=== PATIENT | male | born 1965 | race Caucasian/White ===

== ENCOUNTER 2017-07-28 22:40 | Observation (INO) | payer OTHER ==
[2017-07-28] MEDS ORDERED: IPRATROPIUM/ALBUTEROL 3 ML DEYVIAL ONE (22:59)
[2017-07-28] MEDS ORDERED: IPRATROPIUM/ALBUTEROL 3 ML DEYVIAL IH ONE (23:08)
[2017-07-28] MEDS ORDERED: NS 1,000 ML IV ONE ×2 (23:10→23:22)
[2017-07-28] MEDS ORDERED: NS 1,000 ML IV SCH (23:15)
[2017-07-28] MEDS ORDERED: methylPREDNISolone SOD SUCC 125 MG/2 ML VIAL IVP ONE (23:19)
[2017-07-28] MEDS ORDERED: HYDROCODONE/APAP 5/325 TAB PO ONE (23:21)
[2017-07-28] MEDS ORDERED: BENZONATATE 100 MG CAP PO ONE (23:21)
[2017-07-28 23:27] LABS: PLATELET COUNT 121 10^3/uL (150-400)
--- NOTE | 2017-07-28 23:50 | EDPHY ---
H & P Stated Complaint: resp diff. Source: Patient, Family (Mother) Exam Limitations: No limitations - Personal History Current Tetanus/Diphtheria Vaccine: Unsure Current Tetanus Diphtheria and Acellular Pertussis (TDAP): Unsure - Medical/Surgical History Hx Asthma: No Hx Chronic Respiratory Disease: Yes Hx Diabetes: No Hx Cardiac Disease: No Hx Renal Disease: No Hx Cirrhosis: No Hx Alcoholism: No Hx HIV/AIDS: No Hx Splenectomy or Spleen Trauma: No Other PMH: COPD, Bipolar - Social History Smoking Status: Heavy smoker HPI/ROS: HPI: This is a 51-year-old male who presents with Chief Complaint: Respiratory infection Location: Chest Quality: Respiratory infection Duration: 5 days Signs and Symptoms: + shortness of breath at rest, + shortness of breath on exertion, + productive cough, no chest pain, no palpitations, no lower extremity edema, + wheezing, no orthopnea, no paroxysmal nocturnal dyspnea, no fever, no injury/trauma, no hemoptysis, no body aches, no neck stiffness, + fatigue Timing: Worsening Severity: Moderate Context: Patient is a heavy tobacco user presents with 5 day history of worsening productive coughing episodes, dyspnea and generalized fatigue. Denies any chest pain/palpitations/lower extremity edema. Has an Albuterol inhaler at home but does not use consistently as he reports that "it does not work." Does not see a physician regularly. Did not receive influenza vaccination this year. Reports generalized malaise and decreased appetite. Mother reports he only drinks coffee daily. Patient's biggest complaint is the inability to cough up mucus. No official diagnosis of COPD. No prior hospitalizations for COPD exacerbation and no previous intubations secondary to respiratory distress. Modifying Factors: None Comment: ROS: see HPI Constitutional: No fever, + chills, no weight loss Eyes: No blurred vision Respiratory: + shortness of breath,+ cough Cardiovascular: No chest pain, no palpitations, no lower extremity edema Gastrointestinal: No nausea, no vomiting, no diarrhea Genitourinary: No dysuria Extremities: No myalgias Neurologic: No weakness, no numbness Skin: No rashes Hematologic: No bruising, no bleeding MEDICAL/SURGICAL/SOCIAL HISTORY: Medical history: Tobacco user. Does not take any regular medications. Surgical history: Denies Social history: Mother at bedside. CONSTITUTIONAL: Adult white male who appears older than stated age, smells heavily of tobacco, awake and alert, no obvious distress HEENT: Atraumatic and normocephalic, PERRL, EOMI. Tympanic membranes clear. Oropharynx clear, no exudate and moist pink mucosa. Airway patent. No lymphadenopathy. No meningismus. Cardiovascular: Normal S1/S2, tachycardia, regular rhythm, without murmur rub or gallop. PULMONARY/CHEST: Symmetrical and nontender. Tachypnea; faint expiratory wheezing heard throughout. Purse lipped breathing; prolonged expiratory phase. fair air movement. No accessory muscle usage. ABDOMEN: Soft, nondistended, nontender, no rebound, no guarding, no peritoneal signs, no masses or organomegaly. No CVAT. EXTREMITIES: 2/2 pulses, strength 5/5, no deformities, no clubbing, no cyanosis or edema. No calf tenderness. NEUROLOGICAL: no focal neuro deficits. GCS 15. SKIN: Warm and dry, no erythema. no rash. Good capillary refill. (Anastasia Williamson) Constitutional: Initial Vital Signs Temperature (C) 37.6 C 07/28/17 22:43 Heart Rate 142 H 07/28/17 22:43 Respiratory Rate 20 07/28/17 22:43 Blood Pressure 120/82 H 07/28/17 22:43 O2 Sat (%) 89 L 07/28/17 22:43 O2 Delivery Mode Nasal Cannula O2 (L/minute) 3 Allergies/Adverse Reactions: haloperidol [From Haldol] Allergy (Verified 07/28/17 22:45) Medical Decision Making - Diagnostics Imaging Results: Imaging Impressions Chest X-Ray 07/28/17 23:14 Impression: Mild airways disease. No pneumonia or effusion.. ED Course/Re-evaluation: Labs, IV fluids, nebulizer therapy, IV medications, influenza, chest x-ray ordered Vital signs reviewed upon arrival: O2 sats 88% on room air with a heart rate of 140 Placed on 3 L nasal cannula. Will evaluate for influenza versus COPD exacerbation versus pneumonia Patient given 3 L normal saline, IV Solu-Medrol, DuoNeb, Tessalon Perles and p.o. [place] with minimal relief Reassessed patient 1 hr later and heart rate now 115-120. Chest x-ray my read shows no signs of opacity, effusion, pneumothorax, widened mediastinum. Influenza B positive: Tamiflu candidate. Patient removed from 3 L nasal cannula; dropped down to 85% on room air at rest. Patient has [facility] but prefers to stay at our facility. Called [facility] and they notify me that patient has the type of insurance were he can choose to go to any facility and he may remain at [facility]. 0015: ED to consult for admission: Spoke with Dr. Ospina who kindly agrees to admit patient and provide further care. This patient was seen under the supervision of my secondary supervising physician. I evaluated care for this patient independently. (Anastasia Williamson) PHYSICIAN DOCUMENTATION: The patient was evaluated and managed by the Physician Data Entry Processor. My co- signature indicates that I have reviewed this chart and I agree with the findings and plan of care as documented. I am the secondary supervising physician. (Kita Whalen) Differential Diagnosis: Shortness of breath including but not limited to pulmonary infectious process, COPD, asthma, pulmonary embolus and congestive heart failure. (Anastasia Williamson) - Data Points Laboratory Results: Laboratory Results 07/28/17 23:15 07/28/17 23:15 07/28/17 07/28/17 07/28/17 23:16 23:15 23:15 WBC RBC Hgb Hct MCV MCH MCHC RDW Plt Count MPV Neut % (Auto) Lymph % (Auto) [place] % (Auto) Eos % (Auto) Baso % (Auto) Nucleat RBC Rel Count Absolute Neuts (auto) Absolute Lymphs (auto) Absolute Monos (auto) Absolute Eos (auto) Absolute Basos (auto) Absolute Nucleated RBC Immature Gran % Immature Gran # VBG Lactic Acid 0.7 mmol/L mmol/L (0.7-2.1) Sodium 133 mEq/L L mEq/L (135-145) Potassium 4.5 mEq/L mEq/L (3.5-5.2) Chloride 96 mEq/L L mEq/L (97-110) Carbon Dioxide 25 mEq/l mEq/l (22-31) Anion Gap 12 mEq/L mEq/L (8-16) BUN 21 mg/dL mg/dL (7-23) Creatinine 1.3 mg/dL mg/dL (0.7-1.3) Estimated GFR 58 Glucose 118 mg/dL H mg/dL (70-100) Calcium 8.6 mg/dL mg/dL (8.5-10.4) Troponin I < 0.012 ng/mL ng/mL (0.000-0.034) NT-Pro-B Natriuret Pep 42 pg/mL pg/mL (0-125) Nasal Influenza A PCR NEGATIVE FOR FLU A (NEGATIVE) Nasal Influenza B PCR FLU B DETECTED H (NEGATIVE) 07/28/17 23:15 WBC 3.92 10^3/uL 10^3/uL (3.80-9.50) RBC 4.66 10^6/uL 10^6/uL (4.40-6.38) Hgb 15.2 g/dL g/dL (13.7-17.5) Hct 42.0 % % (40.0-51.0) MCV 90.1 fL fL (81.5-99.8) MCH 32.6 pg pg (27.9-34.1) MCHC 36.2 g/dL g/dL (32.4-36.7) RDW 12.6 % % (11.5-15.2) Plt Count 121 10^3/uL L 10^3/uL (150-400) MPV 10.4 fL fL (8.7-11.7) Neut % (Auto) 71.2 % % (39.3-74.2) Lymph % (Auto) 16.1 % % (15.0-45.0) [place] % (Auto) 11.7 % % (4.5-13.0) Eos % (Auto) 0.0 % L % (0.6-7.6) Baso % (Auto) 0.5 % % (0.3-1.7) Nucleat RBC Rel Count 0.0 % % (0.0-0.2) Absolute Neuts (auto) 2.79 10^3/uL 10^3/uL (1.70-6.50) Absolute Lymphs (auto) 0.63 10^3/uL L 10^3/uL (1.00-3.00) Absolute Monos (auto) 0.46 10^3/uL 10^3/uL (0.30-0.80) Absolute Eos (auto) 0.00 10^3/uL L 10^3/uL (0.03-0.40) Absolute Basos (auto) 0.02 10^3/uL 10^3/uL (0.02-0.10) Absolute Nucleated RBC 0.00 10^3/uL 10^3/uL (0-0.01) Immature Gran % 0.5 % % (0.0-1.1) Immature Gran # 0.02 10^3/uL 10^3/uL (0.00-0.10) VBG Lactic Acid Sodium Potassium Chloride Carbon Dioxide Anion Gap BUN Creatinine Estimated GFR Glucose Calcium Troponin I NT-Pro-B Natriuret Pep Nasal Influenza A PCR Nasal Influenza B PCR Medications Given: Albuterol/Ipratropium (Duoneb) 3 ml IH QID LORI Stop: 01/25/18 05:59 Last Admin: 07/29/17 06:04 Dose: 3 ml Discontinued Medications Hydrocodone Bitart/Acetaminophen ([place] 5/325) 2 tab PO EDNOW ONE Stop: 07/28/17 23:22 Last Admin: 07/28/17 23:32 Dose: 2 tab Albuterol/Ipratropium (Duoneb) 3 ml IH EDNOW ONE Stop: 07/28/17 23:09 Last Admin: 07/28/17 23:10 Dose: 3 ml Azithromycin (Zithromax) 500 mg PO ONCE ONE PRN Reason: Protocol Stop: 07/29/17 01:31 Last Admin: 07/29/17 02:15 Dose: 500 mg Benzonatate (Tessalon Pearles) 200 mg PO EDNOW ONE Stop: 07/28/17 23:22 Last Admin: 07/28/17 23:32 Dose: 200 mg Sodium Chloride (Ns) 1,000 mls @ 0 mls/hr IV ONCE ONE PRN Reason: Wide Open Stop: 07/28/17 23:11 Last Admin: 07/28/17 23:11 Dose: 1,000 mls Sodium Chloride (Ns) 1,000 mls @ 0 mls/hr IV EDNOW ONE; Wide Open PRN Reason: Protocol Stop: 07/28/17 23:23 Last Admin: 07/28/17 23:31 Dose: 1,000 mls Sodium Chloride (Ns) 1,000 mls @ 0 mls/hr IV EDNOW ONE; Wide Open PRN Reason: Protocol Stop: 07/29/17 00:09 Last Admin: 07/29/17 00:30 Dose: 1,000 mls Methylprednisolone Sodium Succinate (Solu-Medrol) 125 mg IVP EDNOW ONE Stop: 07/28/17 23:20 Last Admin: 07/28/17 23:20 Dose: 125 mg Oseltamivir Phosphate (Tamiflu) 75 mg PO EDNOW ONE Stop: 07/29/17 00:07 Last Admin: 07/29/17 00:30 Dose: 75 mg Departure - Departure Disposition: [facility] Clinical Impression: Influenza B, COPD with exacerbation, Hypoxia Condition: Fair
[2017-07-29] MEDS ORDERED: OSELTAMIVIR PHOSPHATE 75 MG CAP PO ONE (00:06)
[2017-07-29] MEDS ORDERED: NS 1,000 ML IV ONE (00:08)
[2017-07-29] MEDS ORDERED: ALBUTEROL 3 ML DEYVIAL IH PRN (01:28)
[2017-07-29] MEDS ORDERED: ONDANSETRON 4 MG/2 ML VIAL IVP PRN (01:28)
[2017-07-29] MEDS ORDERED: ACETAMINOPHEN 325 MG TAB PO PRN (01:28)
[2017-07-29] MEDS ORDERED: ONDANSETRON DISINTEGRATING 4 MG TAB PO PRN (01:28)
[2017-07-29] MEDS ORDERED: AZITHROMYCIN 250 MG TAB PO ONE (01:30)
--- NOTE | 2017-07-29 02:16 | PDGENHP ---
History and Physical - Chief Complaint Shortness of breath - History of Present Illness 51 yo M w/ COPD and schizophrenia presents w/ shortness of breath. Patient has had URI symptoms (cough, congestion, SOB) for 4 days. These symptoms progressed until today when his shortness of breath and wheezing became worse. In the ED he was noted to flu positive with an audible wheeze. Additionally, he was hypoxic to mid 80's upon ambulation so he was admitted for further treatment. History Information - Allergies/Home Medication List Allergies/Adverse Reactions: haloperidol [From Haldol] Allergy (Verified 07/28/17 22:45) I have personally reviewed and updated: family history, medical history - Past Medical History COPD Additional medical history: Schizophrenia - Surgical History Additional surgical history: Diverticulitis a few years ago w/ drain placement - Family History Additional family history: Asked, denies - Social History Smoking Status: Heavy smoker Review of Systems Review of Systems: ROS: 10pt was reviewed & negative except for what was stated in HPI & below Physical Exam Physical Exam: Temp Pulse Resp BP Pulse Ox 36.8 C 104 H 20 122/78 H 89 L 07/29/17 01:51 07/29/17 01:51 07/29/17 01:51 07/29/17 01:51 07/29/17 01:51 O2 (L/minute) 2 Constitutional: no apparent distress, not in pain Eyes: PERRL, EOMI Ears, Nose, Mouth, Throat: moist mucous membranes, no oral mucosal ulcers Cardiovascular: regular rate and rhythym, no murmur, rub, or gallop Respiratory: no respiratory distress, reduced air movement, No expiratory wheeze Gastrointestinal: normoactive bowel sounds, soft, non-tender abdomen Skin: warm, normal color Musculoskeletal: full muscle strength, no muscle tenderness Neurologic: AAOx3, CN II-XII Intact Psychiatric: interacting appropriately, not anxious Lab Data & Imaging Review 07/28/17 23:15 07/28/17 23:15 WBC 3.92 10^3/uL (3.80-9.50) 07/28/17 23:15 RBC 4.66 10^6/uL (4.40-6.38) 07/28/17 23:15 Hgb 15.2 g/dL (13.7-17.5) 07/28/17 23:15 Hct 42.0 % (40.0-51.0) 07/28/17 23:15 MCV 90.1 fL (81.5-99.8) 07/28/17 23:15 MCH 32.6 pg (27.9-34.1) 07/28/17 23:15 MCHC 36.2 g/dL (32.4-36.7) 07/28/17 23:15 RDW 12.6 % (11.5-15.2) 07/28/17 23:15 Plt Count 121 10^3/uL (150-400) L 07/28/17 23:15 MPV 10.4 fL (8.7-11.7) 07/28/17 23:15 Neut % (Auto) 71.2 % (39.3-74.2) 07/28/17 23:15 Lymph % (Auto) 16.1 % (15.0-45.0) 07/28/17 23:15 [place] % (Auto) 11.7 % (4.5-13.0) 07/28/17 23:15 Eos % (Auto) 0.0 % (0.6-7.6) L 07/28/17 23:15 Baso % (Auto) 0.5 % (0.3-1.7) 07/28/17 23:15 Nucleat RBC Rel Count 0.0 % (0.0-0.2) 07/28/17 23:15 Absolute Neuts (auto) 2.79 10^3/uL (1.70-6.50) 07/28/17 23:15 Absolute Lymphs (auto) 0.63 10^3/uL (1.00-3.00) L 07/28/17 23:15 Absolute Monos (auto) 0.46 10^3/uL (0.30-0.80) 07/28/17 23:15 Absolute Eos (auto) 0.00 10^3/uL (0.03-0.40) L 07/28/17 23:15 Absolute Basos (auto) 0.02 10^3/uL (0.02-0.10) 07/28/17 23:15 Absolute Nucleated RBC 0.00 10^3/uL (0-0.01) 07/28/17 23:15 Immature Gran % 0.5 % (0.0-1.1) 07/28/17 23:15 Immature Gran # 0.02 10^3/uL (0.00-0.10) 07/28/17 23:15 VBG Lactic Acid 0.7 mmol/L (0.7-2.1) 07/28/17 23:15 Sodium 133 mEq/L (135-145) L 07/28/17 23:15 Potassium 4.5 mEq/L (3.5-5.2) 07/28/17 23:15 Chloride 96 mEq/L (97-110) L 07/28/17 23:15 Carbon Dioxide 25 mEq/l (22-31) 07/28/17 23:15 Anion Gap 12 mEq/L (8-16) 07/28/17 23:15 BUN 21 mg/dL (7-23) 07/28/17 23:15 Creatinine 1.3 mg/dL (0.7-1.3) 07/28/17 23:15 Estimated GFR 58 07/28/17 23:15 Glucose 118 mg/dL (70-100) H 07/28/17 23:15 Calcium 8.6 mg/dL (8.5-10.4) 07/28/17 23:15 Troponin I < 0.012 ng/mL (0.000-0.034) 07/28/17 23:15 NT-Pro-B Natriuret Pep 42 pg/mL (0-125) 07/28/17 23:15 Nasal Influenza A PCR NEGATIVE FOR FLU A (NEGATIVE) 07/28/17 23:16 Nasal Influenza B PCR FLU B DETECTED (NEGATIVE) H 07/28/17 23:16 Imaging Review: Imaging Impressions Chest X-Ray 07/28/17 23:14 Impression: Mild airways disease. No pneumonia or effusion.. Assessment & Plan Assessment: 51 yo M w/ COPD and schizophrenia presents with AHRF 2/2 COPD exacerbation from flu infection. Plan: 1. COPD with acute exacerbation - 2/2 influenza infection. Wheezing noted in ED but clear breath sounds by the time of his arrival on the floor. He follows with [facility] and takes Advair daily with albuterol PRN. - Duonebs QID + albuterol PRN - Azithromycin and prednisone for 5 days - Tamiflu 75 mg PO BID for 5 days 2. AHRF - 2/2 above, noted to be in mid 80's upon ambulation in the ED. - Acute treatment as above - IS, wean O2 as able 3. Schizophrenia - Appears well compensated. He takes fluphenazine, Zyprexa, and Artane as outpatient. Diet - Regular Code - Full Ppx - LMWH Dispo - Admit to observation status
[2017-07-29 05:22] LABS: PLATELET COUNT 99 10^3/uL (150-400)
[2017-07-29] MEDS: IPRATROPIUM/ALBUTEROL 3 ML DEYVIAL IH SCH ×4 (06:04→20:13)
[2017-07-29] MEDS: OSELTAMIVIR PHOSPHATE 75 MG CAP PO SCH ×2 (09:36→17:59)
[2017-07-29] MEDS: predniSONE 20 MG TAB PO SCH (09:36)
[2017-07-29] MEDS: AZITHROMYCIN 250 MG TAB PO SCH (09:36)
[2017-07-29] MEDS: ENOXAPARIN 40 MG/0.4 ML SYR SC SCH (09:39)
--- NOTE | 2017-07-29 16:55 | ASMTCMCOM ---
CM Note CM Note Notes: Spoke with hospitalist, patient here for a COPD exacerbation and will likely discharge tomorrow. No therapies have been ordered, so I anticipate an independent discharge. CM available if needs arise. Date Signed: 07/29/2017 04:55 PM Electronically Signed By:Cintia Feliz RN
--- NOTE | 2017-07-29 17:08 | HOSPPROG ---
Hospitalist Progress Note Assessment/Plan: # Acute COPD with acute exacerbation - 2/2 influenza infection. Wheezing persists this am - coughing improved per patient Oxygen saturation 90% on 3 L- baseline no O2 at home - Duonebs QID + albuterol PRN - Azithromycin and prednisone for 5 days - Tamiflu 75 mg PO BID for 5 days # acute influenza B- continue Tamiflu # AHRF - 2/2 above, noted to be in mid 80's upon ambulation in the ED. chest x-ray (personally reviewed and interpreted) no acute infiltrate - Acute treatment as above - IS, wean O2 as able # Schizophrenia - Appears well compensated. He takes fluphenazine, Zyprexa, and Artane as outpatient. # hypovolemic hyponatremia sodium 133 on presentation improved to the 140s with fluid resuscitation Diet - Regular Code - Full Ppx - LMWH Dispo - Admit to observation status I have discussed the case with the RN- anticipate disposition tomorrow patient continues to improve throughout the day Subjective: cough improved Objective: Vital Signs Temp Pulse Resp BP Pulse Ox 36.7 C 101 H 20 117/74 91 L 07/29/17 16:03 07/29/17 16:03 07/29/17 16:03 07/29/17 16:03 07/29/17 16:03 Laboratory Results 07/29/17 05:07 07/29/17 05:07 07/28/17 07/29/17 07/30/17 05:59 05:59 05:59 Intake Total 3200 Balance 3200 - Physical Exam Constitutional: no apparent distress Eyes: anicteric sclera Ears, Nose, Mouth, Throat: moist mucous membranes Cardiovascular: regular rate and rhythym Respiratory: expiratory wheeze Gastrointestinal: normoactive bowel sounds Genitourinary: no bladder fullness Skin: warm Musculoskeletal: No asymmetric calves Neurologic: AAOx3 Psychiatric: flat affect, poor insight Lymph, Heme, Immunologic: no cervical LAD ICD10 Worksheet Patient Problems: Problems Problem Status Onset COPD with exacerbation Acute Hypoxia Acute Influenza B Acute
[2017-07-29] MEDS ORDERED: CARBOXYMETHYLCELLULOSE 1% 0.4 ML DROPERETTE EACHEYE PRN (17:28)
[2017-07-29] MEDS: TRIHEXYPHENIDYL HCL 2 MG TAB PO SCH (17:59)
[2017-07-29] MEDS ORDERED: OLANZapine 10 MG TAB PO SCH (21:00)
[2017-07-30] MEDS: IPRATROPIUM/ALBUTEROL 3 ML DEYVIAL IH SCH ×2 (05:23→12:02)
[2017-07-30 09:08] VITALS: BP 129/89; TEMP 98.2
--- NOTE | 2017-07-30 09:15 | PDHOMEO2F ---
Home Oxygen Face to Face Home Orders: I certify that a physician or a nurse practitioner or physician's human resources executive assistant has had a [id number] encounter with this patient on the date of this order due to the diagnosis listed, which relates to the primary reason the patient requires home oxygen. Alternative treatments have been tried, or considered, and deemed ineffective. It is anticipated that supplemental oxygen will result in improvement with treatment. Home oxygen qualifying diagnosis: influenza and COPD SpO2 on room air (%): 86 RA Frequency of home oxygen needed: continuous Home oxygen liters per minute: 2 Home oxygen delivery device: nasal cannula Concentrator: Yes E-tanks for mobility and back up: Yes If ordering portable O2, is the patient mobile in the home?: Yes I certify that, based on these findings, the home oxygen is medically necessary for this patient for the following length of time. Length of time home oxygen needed: 1 month
[2017-07-30] MEDS: TRIHEXYPHENIDYL HCL 2 MG TAB PO SCH (09:19)
[2017-07-30] MEDS: OSELTAMIVIR PHOSPHATE 75 MG CAP PO SCH (09:19)
[2017-07-30] MEDS: predniSONE 20 MG TAB PO SCH (09:19)
[2017-07-30] MEDS: AZITHROMYCIN 250 MG TAB PO SCH (09:20)
[2017-07-30 09:28] VITALS: PULSE 113; RESP 20; O2SAT 86
[2017-07-30] MEDS: ENOXAPARIN 40 MG/0.4 ML SYR SC SCH (10:48)
--- NOTE | 2017-07-30 14:42 | ASDISCHSUM ---
Discharge Information Plan Status:Home with No Needs Medically Cleared to Leave: Discharge Date:07/30/2017 02:04 PM CM D/C Disposition:Home, Routine, Self-Care ADT D/C Disposition:Home, Routine, Self-Care Projected Discharge Date:07/30/2017 02:04 PM Transportation at D/C: Discharge Delay Reason: Follow-Up Date:07/30/2017 02:04 PM Discharge Slot: Final Diagnosis: Placement Information Patient Contact Information Contact Name:AKIL Relationship:Mother Address:[address] Work Phone: [facility]:[place] Alternate Phone: [facility]/Zip Code:[place] [address] Email: Financial Information Financial Class:Medicare Advantage Plans Primary Plan Desc:MICHELLE MEDICARE ADVANTAGE OUTPAT Primary Plan Number:[id number] Secondary Plan Desc: Secondary Plan Number: Assessment Information [facility] CM Progress Note CM Note CM Note Notes: Spoke with hospitalist, patient here for a COPD exacerbation and will likely discharge tomorrow. No therapies have been ordered, so I anticipate an independent discharge. CM available if needs arise. Date Signed: 07/29/2017 04:55 PM Electronically Signed By:Cintia Feliz RN Intervention Information Intervention Type:*DRU-Signed Date of Service:07/29/2017 11:03 AM Patient Type:Observation Staff Member:Marla Garcia Hours: Discipline: Severity: Comment:
--- NOTE | 2017-07-30 22:29 | GDS ---
[f rep st] DISCHARGE SUMMARY DISCHARGE DIAGNOSES: Include: 1. Acute influenza B. 2. Acute chronic obstructive pulmonary disease exacerbation. 3. Acute hypoxic respiratory failure. 4. Schizophrenia. HISTORY OF PRESENT ILLNESS: This is a 51-year-old male, with known chronic lung disease who presente d with worsening shortness of breath and cough. For details of patient's initial presentation, [place] see the history and physical dated 07/29/2017. CONSULTATIVE SERVICES: None. PROCEDURES: None. HOSPITAL COURSE: 1. Acute hypoxic respiratory failure thought multifactorial secondary to acute influenza B, as well as chronic COPD with acute exacerbation. Patient was treated with Tamiflu, steroid burst, and supple mental oxygen with his chronic inhaled beta agonist medications. He is being discharged to complete a full course of Tamiflu, 2 additional days of oral steroid burst, and continued supplemental oxygen until cleared to discontinue by his outpatient provider. 2. Acute influenza B. Patient was initiated on Tamiflu and did have rapid improvement in his sympto ms soon after initiation. He will complete the 10-dose course. 3. Acute chronic obstructive pulmonary disease exacerbation. Patient was quite wheezy on initial ho spitalization. On the day of disposition, he was wheezing much less, reports improvement in his coug h and shortness of breath. He is still requiring 2 L of supplemental oxygen, but we suspect this carolyne l be weanable in the course of the next week or two. 4. Schizophrenia. Patient was continued on his home medications without alteration. MEDICATIONS AT THE TIME OF DISPOSITION: Please reference med rec printed on 07/30/2017. FOLLOWUP APPOINTMENTS: Include with the primary care provider in the next 7-10 days, post completion of Tamiflu and steroid burst for disposition followup and check of the patient's oxygen saturation. PENDING STUDIES: At time of dictation are none. BILLING: I spent greater than 30 minutes in the planning and coordination of this discharge. /[id number]/MODL
== END 2017-07-30 14:04 | disposition home or self-care (01) ==
LOC: F3N 07-29 01:51
PROVIDERS: ADMIT Student in an Organized Health Care Education/Training Program; ATTEND Student in an Organized Health Care Education/Training Program
DX: J10.1 Influenza due to other identified influenza virus with other respiratory manifestations (principal); J44.1 Chronic obstructive pulmonary disease with (acute) exacerbation; J96.01 Acute respiratory failure with hypoxia; F20.9 Schizophrenia, unspecified; F17.200 Nicotine dependence, unspecified, uncomplicated
CPT/HCPCS: 71046; G0378; J2930; J7512; 96374; J1650